=== PATIENT | male | born 1990 | race Caucasian/White ===

== ENCOUNTER 2024-08-22 11:01 | Outpatient (REF) | payer MEDICAID, SELFPAY ==
--- OUTSIDE RECORDS SUMMARY | 2024-08-22 12:55 | XMS_ITS | Clinical Summary ---
Author Organization [employer] Address [address] [facility] [address] [place] [address] Care Team Providers Care Sleeve Tailor Name Role Phone Unavailable Primary Care Provider Unavailabl e Allergies No known active allergies Medications Blood Pressure kit 1 each 2 times daily. 1 kit 5 08/23/19 26 Active lidocaine (Lidoderm) 5 % patch Apply 1 patch topically Once per day. Remove & discard patch within 12 hours or as directed by MD. May use 2 patches at once 60 patch 2 5 08/23/19 26 Active acetaminophen (Tylenol) 500 MG tablet Take 2 tablets (1,000 mg) by mouth every 6 (six) hours if needed for moderate pain or fever for up to 25 doses. 50 tablet 5 Active ibuprofen 400 MG tablet Take 1 tablet (400 mg) by mouth every 6 (six) hours if needed for moderate pain or fever for up to 30 doses. 30 tablet 5 Active Active Problems No known active problems Encounters Date Type Department Care Team Description 08/22/2024 10:00 AM EDT Office Visit [facility] [address] [address] Foot pain, bilateral (Primary Dx); Pain in both lower extremities; Elevated blood pressure reading in office without diagnosis of hypertension 08/22/2024 Travel from Last 3 Months Social History Tobacco Use Types Packs/Day Years Used Date Smoking Tobacco: Former Cigarettes Smokeless Tobacco: Never Tobacco Cessation:Counseling Given: Not Answered Alcohol Use Standard Drinks/Week Comments Not Currently 0 (1 standard drink = 0.6 oz pur e alcohol) Sex and Gender Information Value Date Recorded Sex Assigned at Male 02/23/2022 10:29 AM EDT Legal Sex Male 10:29 AM EDT Gender Identity Male 08/22/2024 9:03 AM EDT Sexual Orientation Straight 08/22/2024 9: 03 AM EDT Last Filed Vital Signs Vital Sign Reading Time Taken Comments Blood Pressure 151/103 08/22/2024 9:48 AM EDT Pulse 110 08/22/2024 9:48 AM EDT Temperature 36.3 ??C (97.4 ??F) 08/22/2024 9:48 AM ED T Respiratory Rate 17 08/22/2024 9:48 AM EDT Oxygen Saturation 98% 08/22/2024 9:48 AM EDT Inhaled Oxygen Concentration - - Weight 59.9 kg (132 lb) 08/22/2024 9:48 AM EDT Height - - Body Mass Index - - Plan of Treatment Health Maintenance Due Date Last Done Comments Depression Screening 1992 HIV Screening 1992 SDOH Screening 1992 Alcohol/Substance Use Screening 2004 Family Planning (PISQ) 07/12/2007 Hepatitis C Screening 2010 DTaP/Tdap/Td Vaccines (1 - Tdap) 07/12/2011 Hepatitis B Vaccines (1 of 3 - 19+ 3-dose series) 07/12/2011 COVID-19 Vaccine ( - 2023-2 5 season) 2023 Influenza Vaccine (#1) 2023 Tobacco Screening 08/22/2025 08/22/2024 Zoster Vaccines (1 of 2) 2042 RSV Patients and Pa tients Aged 60 years or older (1 - 1-dose 75+ series) 07/12/2067 HIB Vaccines Aged Out No longer eligi ble based on patient's age to complete this topic HPV Vaccines Aged Out No longer eligi ble based on patient's age to complete this topic Hepatitis A Vaccines Aged Out No long er eligible based on patient's age to complete this topic IPV Vaccines Aged Out No longer eligi ble based on patient's age to complete this topic Meningococcal Vaccine Aged Out No onesimo lewis eligible based on patient's age to complete this topic Pneumococcal Vaccine: Pediat rics (0 to 5 Years) and At-Risk Patients (6 to 49) Years) Aged Out No longer elig ible based on patient's age to complete this topic RSV under 20 months Aged Out No longe r eligible based on patient's age to complete this topic Rotavirus Vaccines Aged Out No longer eligible based on patient's age to complete this topic Insurance [facility]
--- OUTSIDE RECORDS SUMMARY | 2024-08-22 12:55 | XMS_ITS | Encounter Summary ---
Author Organization [employer] [facility] Address [address] [facility] 7t [place] [address] Care Team Providers Care Writing Center Director Name Role Phone Unavailable Primary Care Provider Unavailabl e Encounter Details Date Type Department Care Team (Latest Contact Info) Description 08/22/2024 Travel Social History Tobacco Use Types Packs/Day Years Used Date Smoking Tobacco: Former Cigarettes Smokeless Tobacco: Never Alcohol Use Standard Drinks/Week Comments Not Currently 0 (1 standard drink = 0.6 oz pur e alcohol) Sex and Gender Information Value Date Recorded Sex Assigned at Male 02/23/2022 10:29 AM EDT Legal Sex Male 10:29 AM EDT Gender Identity Male 08/22/2024 9:03 AM EDT Sexual Orientation Straight 08/22/2024 9: 03 AM EDT documented as of this encounter Plan of Treatment Not on file documented as of this encounter Visit Diagnoses Not on filedocumented in this encounter
--- OUTSIDE RECORDS SUMMARY | 2024-08-22 12:55 | XMS_ITS | Encounter Summary ---
Author Organization [employer] Address [address] [facility] [address] [place] [address] Care Team Providers Care Order Checker Packer Processer Name Role Phone Unavailable Primary Care Provider Unavailabl e Reason for Visit * Reason Comments Foot Pain Encounter Details Date Type Department Care Team (Late st Contact Info) Description 08/22/2024 10:00 AM EDT Office Visit [facility] [address] [place] [id number] Foot pain, bilateral (Primary Dx); Pain in both lower extremities; Elevated blood pressure reading in office without diagnosis of hypertension Social History Tobacco Use Types Packs/Day Years [...] AM EDT documented as of this encounter Last Filed Vital Signs Vital Sign Reading [...] - - Body Mass Index - - documented in this encounter Plan of Treatment Scheduled Orders Name Type Priority Associated Diagnoses Orde r Schedule CBC auto differential Lab Routine Elevated blood pressure reading in office without diagnosis of hypertension Foot pain, bilateral Pain in both lower extremities Expected: 08/22/2024 (Approximate), Expires: 08/22/2025 Comprehensive Metabolic Panel Lab Routine Elevated blood pressure reading in office without diagnosis of hypertension Foot pain, bilateral Pain in both lower extremities Expected: 08/22/2024 (Approximate), Expires: 08/22/2025 TSH with Reflex to Free T4 Lab Routine Elevated blood pressure reading in office without diagnosis of hypertension Foot pain, bilateral Pain in both lower extremities Expected: 08/22/2024 (Approximate), Expires: 08/22/2025 Vitamin B12 Lab Routine Elevated blood pressure reading in office without diagnosis of hypertension Foot pain, bilateral Pain in both lower extremities Expected: 08/22/2024 (Approximate), Expires: 08/22/2025 Uric acid Lab Routine Elevated blood pressure reading in office without diagnosis of hypertension Foot pain, bilateral Pain in both lower extremities Expected: 08/22/2024 (Approximate), Expires: 08/22/2025 Lyme Disease Ab with Reflex to Blot (IgG, IgM) Lab Routine Elevated blood pressure reading in office without diagnosis of hypertension Foot pain, bilateral Pain in both lower extremities Expected: 08/22/2024, Expires: 08/22/2025 Hemoglobin A1c Lab Routine Foot pain, bilateral Expected: 08/22/2024 (Approximate), Expires: 08/22/2025 documented as of this encounter Visit Diagnoses Diagnosis Foot pain, bilateral- Primary Pain in both lower extremities Elevated blood pressure reading in office without diagnosis of hypertension documented in this encounter
[2024-08-22 13:12] LABS: MANUAL DIFF FLAG NO
[2024-08-22 13:29] LABS: Basophils Absolute Auto 0.1 X10*3/uL (0.0-0.2); Basophils Percent Auto 0.8 % (0-2); Eosinophils Absolute Auto 0.1 X10*3/uL (0.0-0.4); Eosinophils Percent Auto 1.3 % (0-4); Hematocrit 46.7 % (42.0-52.0); Hemoglobin 15.5 g/dl (14.0-18.0); Imm Gran Abs Auto 0.01 X10*3/uL (0.00-0.03); Imm Gran Pct Auto 0.2 % (0.0-0.4); Lymphocytes Absolute Auto 1.6 X10*3/uL (1.2-4.9); Lymphocytes Percent Auto 25.8 % (20-40); Mean Corpuscular HGB Conc 33.2 g/dl (31.0-36.0); Mean Corpuscular Hemoglobin 27.7 pg (27.0-33.0); Mean Corpuscular Volume 83.5 fL (80.0-98.0); Monocytes Absolute Auto 0.4 X10*3/uL (0.1-1.2); Monocytes Percent Auto 5.7 % (2-11); Neutrophils Absolute Auto 4.2 x10*3/uL (2.0-8.3); Neutrophils Percent Auto 66.2 % (45-73); Platelet Count 324 X10*3/uL (160-400); Red Blood Count 5.59 X10*6/uL (4.60-5.80); Red Cell Distribution Width 12.2 % (11.0-16.0); White Blood Count 6.3 X10*3/uL (4.8-10.8)
[2024-08-22 13:38] LABS: Estimated Average Glucose 324 mg/dL; Hemoglobin A1C 463.3176 umol/L; Hemoglobin A1c % 12.9 % (<6.0); Total Hemoglobin (HGBA1C) 3943.4824 umol/L
[2024-08-22 14:01] LABS: Alanine Aminotransferase 24 U/L (0-40); Albumin Level 4.6 g/dL (3.5-5.0); Alkaline Phosphatase 165 U/L (39-117); Anion Gap 12 (12-20); Aspartate Amino Transferase 16 U/L (5-37); Bilirubin Total 0.5 mg/dL (0.0-1.0); Blood Urea Nitrogen 14 mg/dL (9-16); Calcium 9.3 mg/dL (8.4-10.2); Carbon Dioxide 28 mmol/L (22-29); Chloride 102 mmol/L (96-108); Estimated Glomerular Filt Rate > 60; Glucose Random 288 mg/dL (60-115); Potassium 4.7 mmol/L (3.3-5.1); Sodium 137 mmol/L (135-145); TSH reflex Free T4 1.59 uIU/mL (0.32-4.0); Total Protein 7.9 g/dL (6.5-8.0); Uric Acid 3.1 mg/dL (3.4-7.0); Vitamin B12 796 pg/mL (200-900)
[2024-08-23 13:13] LABS: Lyme Abs Screen <0.90 index
== END 2024-08-22 11:02 | disposition home or self-care (01) ==
LOC: HO.HHCL 11:01
PROVIDERS: Visit Provider Emergency Medicine
DX: M79.671 Pain in right foot (principal); M79.672 Pain in left foot; M79.604 Pain in right leg; M79.605 Pain in left leg; R03.0 Elevated blood-pressure reading, without diagnosis of hypertension
CPT/HCPCS: 36415; 80053; 82607; 83036; 84443; 84550; 85025; 86617; 86618

== ENCOUNTER 2024-08-24 10:30 | Outpatient (REF) | payer MEDICAID, SELFPAY ==
--- OUTSIDE RECORDS SUMMARY | 2024-08-24 12:02 | XMS_ITS | Encounter Summary ---
Author Organization [employer] [facility] Address [address] [facility] [address] [place] [address] Care Team Providers Care Manager Sourcing Name Role Phone Enrique Eaton MD Primary Care Provider [phone] Reason for Referral * Consultation (Routine) - Authorized Specialty Diagnoses / Procedures Referred By Contac t Referred To Contact Pharmacy Diagnoses Type 2 diabetes mellitus with diabetic neuropathy, without long-term current use of insulin (CMS/HCC) Hypertension, unspecified type Enrique Eaton MD [address] [place] [address] Phone: tel: fax: Referral ID Status Reason Start Date Expiration Date Visits Requested Visits Authorized [id number] Authorized Consult and Treat 08/24/2024 08/24/2025 6 6 Reason for Visit * Reason Comments Diabetes Encounter Details Date Type Department Care Team (Late st Contact Info) Description 08/24/2024 10:00 AM EDT Office Visit [facility] [address] [place] [address] Enrique Eaton MD [address] [place], [place] [phone] Type 2 diabetes mellitus with diabetic neuropathy, without long-term current use of insulin (CMS/HCC) (Primary Dx); Hypertension, unspecified type Social History Tobacco Use Types Packs/Day Years Used Date Smoking Tobacco: Former Cigarettes Smokeless Tobacco: Never Tobacco Cessation:Counseling Given: Not Answered Alcohol Use Standard Drinks/Week Comments Not Currently 0 (1 standard drink = 0.6 oz pur e alcohol) Depression Answer Date Recorded Patient Health Questionnaire-9 Score 8 08/24/2024 Patient Health Questionnaire-9 Score 8 08/24/2024 Last PHQ-9: Questionnaire Data Not on file 0 08/24/2024 Housing Stability Answer Date Recorded What is your housing situation today? I have rogelio starkey 08/24/[address] you li ve. Do you have problems with any of the following? I am not sure 08/24/2024 Food Insecurity Answer Date Recorded Within the past 12 months, y ou worried that your food would run out before you got money to buy more: Never True 2024 Within the past 12 months,th e food you bought just didn't last and you didn't have enough money to get more: Sometimes True 08/24/2024 Transportation Answer Date Recorded In the past 12 months, has l ack of transportation kept you from medical appts, meetings, work or from getting things needed for daily living? No 08/24/2024 Utilities Answer Date Recorded In the past 12 months, has t he electric, gas, oil or water company threatened to shut off services in your home? No 08/24/2024 Depression Answer Date Recorded Patient Health Questionnaire-2 Score 0 08/24/2024 Internet Access Answer Date Recorded Internet Access Q1 No 08/24/2024 Internet Access Q2 My internet/Wi-Fi ac cess is not consistent or reliable 08/24/2024 Sex and Gender Information Value Date Recorded Sex Assigned at Male 02/23/2022 10:29 AM EDT Legal Sex Male 10:29 AM EDT Gender Identity Male 08/22/2024 9:03 AM EDT Sexual Orientation Straight 08/22/2024 9: 03 AM EDT documented as of this encounter Last Filed Vital Signs Vital Sign Reading Time Taken Comments Blood Pressure 149/95 08/24/2024 9:48 AM EDT Pulse 104 08/24/2024 9:48 AM EDT Temperature 36.4 ??C (97.6 ??F) 08/24/2024 9:48 AM ED T Respiratory Rate 18 08/24/2024 9:48 AM EDT Oxygen Saturation 98% 08/24/2024 9:48 AM EDT Inhaled Oxygen Concentration - - Weight 59.3 kg (130 lb 12.8 oz) 08/24/2024 9:48 AM EDT Height 165.1 cm (5' 5 ) 08/24/2024 9:48 AM EDT Body Mass Index 21.77 08/24/2024 9:48 AM EDT documented in this encounter Plan of Treatment Scheduled Orders Name Type Priority Associated Diagnoses Orde r Schedule Albumin, Random Urine W/Creatinine Lab Routine Type 2 diabetes mellitus with diabetic neuropathy, without long-term current use of insulin ([facility]) Expected: 08/24/2024 (Approximate), Expires: 08/24/2025 Scheduled Referrals Name Type Priority Associated Diagnoses Orde r Schedule Referral to Pharmacy CDTM Outpatient Referral Routine Type 2 diabetes mellitus with diabetic neuropathy, without long-term current use of insulin ([facility]) Hypertension, unspecified type Ordered: 08/24/2024 documented as of this encounter Procedures Procedure Name Priority Date/Time Associated Diagnosis Comments POCT GLUCOSE Routine 08/24/2024 9:50 AM EDT Type 2 diabetes mellitus with diabetic neuropathy, without long-term current use of insulin ([facility]) documented in this encounter Results * (ABNORMAL) POCT Glucose (08/24/2024 9:50 AM EDT) [facility] Signature Glucose Blood, POC 241(A) 60 - 200 mg/dL QC Media Lot # [id number] Lot# Expiration Date [id number] Blood Capillary blood specimen / Unknown 08/24/2024 9:50 AM EDT Enrique Eaton MD POINT OF CARE TEST ENTER/EDIT OR DERABLES Final Result documented in this encounter Visit Diagnoses Diagnosis Type 2 diabetes mellitus with diabetic neuropathy, without long-term current use of insulin ([facility])- Primary Hypertension, unspecified type documented in this encounter Additional Health Concerns Assessment Noted Time PHQ-9 Depression Total Score: 8 08/25/19 10:32 AM EDT documented as of this encounter Care Teams Manager Sourcing Relationship Specialty Start Date End Date Name, MD Enrique [address] [place] [address] PCP - General Internal Medicine 08/23/24 documented as of this encounter
--- OUTSIDE RECORDS SUMMARY | 2024-08-24 12:02 | XMS_ITS | Encounter Summary ---
Author Organization [employer] [facility] Address [address] [facility] 7t [place] [address] Care Team Providers Care Private Branch Exchange Service Advisor Name Role Phone Unavailable Primary Care Provider Unavailabl e Reason for Visit * Reason Onset Date Comments Results 08/22/2024 Encounter Details Date Type Department Care Team (Late st Contact Info) Description 08/22/2024 Telephone [facility] [place] [address] [place], [place] [phone] Slim De Jesus MD [address] [place] [address] Results Social History Tobacco Use Types Packs/Day Years [...] AM EDT documented as of this encounter Miscellaneous Notes * Telephone Encounter - Dior Cheng RN - 08/22/2024 2:19 PM EDT TC received from Dr De Jesus after he reviewed labs that were ordered today patient A1C 12.9 new diagnosis of Diabetes pt needs to be seen tomorrow in [facility] in [place] to start medication with Dr De Jesus. TC placed to pt and he was scheduled to be seen tomorrow morning. documented in this encounter Plan of Treatment Not on file documented as of this encounter Visit Diagnoses Not on filedocumented in this encounter
--- OUTSIDE RECORDS SUMMARY | 2024-08-24 12:02 | XMS_ITS | Encounter Summary ---
Author Organization [employer] [facility] Address [address] [facility] 7t [place] [address] Care Team Providers Care Antenna Specialist Name Role Phone Unavailable Primary Care Provider [...]
--- OUTSIDE RECORDS SUMMARY | 2024-08-24 12:02 | XMS_ITS | Encounter Summary ---
Author Organization [employer] Address [address] [facility] [address] 7[address] [place] [address] Care Team Providers Care Cinder Pitman Name Role Phone Unavailable Primary Care Provider Unavailabl e Encounter Details Date Type Department Care Team (Late st Contact Info) Description 08/22/2024 Telephone [facility] [address] [place], [place] [phone] Slim De Jesus MD [address] [place], [place] [phone] Social History Tobacco Use Types Packs/Day Years [...] encounter Miscellaneous Notes * Telephone Encounter - Keyanna Iyer RN - 08/22/2024 4:24 PM EDT TC placed to pt regarding message below. Pt verbalized understanding regarding advisement and in agreement to appts. No questions or concerns expressed at time of call. [facility] Staff Monica assisting with translation for above call. RN verbally spoke with Dr. De Jesus regarding upcoming appt tomorrow 08/23/24 and to prevent longer waiting time for pt between appt at Walk In and going to pharmacy for new diabetic supplies/teaching, appt at [facility] Walk In requested to be moved to 0900. New Pt appt able to be obtained for pt, this 08/24/[address] Name. RN to also advise he can eat breakfast prior to appts tomorrow but a lso advise to avoid all concentrated sweets/sugars. documented in this encounter Plan of Treatment Not on file documented as of this encounter Visit Diagnoses Not on filedocumented in this encounter
--- OUTSIDE RECORDS SUMMARY | 2024-08-24 12:02 | XMS_ITS | Encounter Summary ---
Author Organization [employer] [facility] Address [address] [place] [address] Care Team Providers Care Defence Force Senior Officer Name Role Phone Name, Enrique AUGUSTE Primary Care Provider [phone] Reason for Referral * Consultation (Routine) - Pending Review Specialty Diagnoses / Procedures Referred By Contac t Referred To Contact Ophthalmology Diagnoses Type 2 diabetes mellitus with diabetic neuropathy, without long-term current use of insulin (CMS/HCC) Slim De Jesus MD [address] [place] [address] Phone: tel: fax: Referral ID Status Reason Start Date Expiration Date Visits Requested Visits Authorized [id number] Pending Review Specialty Services Required 08/23/2024 08/23/2025 1 1 Reason for Visit * Reason Comments Diabetes Encounter Details Date Type Department Care Team (Late st Contact Info) Description 08/23/2024 9:00 AM EDT Office Visit [facility] [address] [place], [place] [phone] Slim De Jesus MD [address] [place], [place] [phone] Type 2 diabetes mellitus with diabetic neuropathy, without long-term current use of insulin (CMS/HCC) (Primary Dx); Elevated blood pressure reading in office without [...] Sign Reading Time Taken Comments Blood Pressure 148/97 08/23/2024 8:46 AM EDT Pulse 93 08/23/2024 8:46 AM EDT Temperature 36.7 ??C (98.1 ??F) 08/23/2024 8:46 AM ED T Respiratory Rate 17 08/23/2024 8:46 AM EDT Oxygen Saturation 98% 08/23/2024 8:46 AM EDT Inhaled Oxygen Concentration - - Weight 59.9 kg (132 lb) 08/23/2024 8:46 AM EDT Height - - Body Mass Index - - documented in this encounter Progress Notes * Slim De Jesus MD - 08/23/2024 9:00 AM EDT Subjective Patient ID: Jordy Fong is a 34 y.o. male. Blueprint Maker: Ivanna REESE Jordy was contacted to return to the walk-in clinic today because he was seen yesterday as a new patient, had no h/o medical diagnoses. Blood tests were ordered and his A1C result was 12.9. Random blood sugar was 288. He came to walk-in clinic yesterday because of 4 month h/o pain in bilat lateral legs and plantar surfaces of both feet with occasional tingling of feet. Pain is constant, worse when bearing weight for several hours at work. Had not tried any pain meds. Cold helps, heat doesn't. No trauma, joint swelling, fever, chills, rash, tick bite, family history of gout. In [facility] there is a [facility] Emergency Department visit note from December 06, 2021 when he was seen for palpitations. Random blood sugar at that time was 238, but it was not addressed in the ED note. Other lab abnormalities at that visit was alkaline phosphatase at 159, ALT 41, total protein 8.4. Lives with roommates. Has no children. Works in a restaurant. Smoked for 5 years, quit 3 years ago. No EtOH. No Illicit substances. The following portions of the chart were reviewed this encounter and updated as appropriate: Review of Systems Constitutional: Negative for fever. Respiratory: Negative for shortness of breath. Cardiovascular: Negative for chest pain. Gastrointestinal: Negative for abdominal pain. Skin: Negative for rash. Neurological: Positive for numbness. Negative for headaches. Objective Physical Exam Constitutional: Appearance: Normal appearance. HENT: Nose: Nose normal. Eyes: Conjunctiva/sclera: Conjunctivae normal. Pupils: Pupils are equal, round, and reactive to light. Cardiovascular: Rate and Rhythm: Normal rate and regular rhythm. Pulses: Dorsalis pedis pulses are 2+ on the right side and 2+ on the left side. Heart sounds: No murmur heard. Pulmonary: Effort: Pulmonary effort is normal. Breath sounds: Normal breath sounds. Musculoskeletal: General: Normal range of motion. Cervical back: No tenderness. Skin: Findings: No rash. Neurological: Mental Status: He is alert. Gait: Gait is intact. Psychiatric: Mood and Affect: Mood normal. Behavior: Behavior normal. Procedures Assessment/Plan Diagnoses and all orders for this visit: Type 2 diabetes mellitus with diabetic neuropathy, without long-term current use of insulin (CMS/[facility]) Discussed diagnosis, prescribed metformin, Lantus Solostar, glucometer with supplies. I spoke with [facility] pharmacy, and he is going there now to pickle processor the prescriptions, and for being taught how to use the Lantus Solostar, glucometer and supplies. Referred to ophthalmology. Has new patient PCP appointment tomorrow. - Referral to Ophthalmology; Future Elevated blood pressure reading in office without diagnosis of hypertension Yesterday he was prescribed home blood pressure monitor, and was given BP log to use twice a day. He will bring log to PCP appointment tomorrow. Other orders - pen needle 32G x 4 mm misc; Use as instructed documented in this encounter Plan of Treatment Scheduled Referrals Name Type Priority Associated Diagnoses Order Schedule Referral to Ophthalmology Outpatient Referral Routine Type 2 diabetes mellitus with diabetic neuropathy, without long-term current use of insulin (CMS/HCC) Expected: 08/23/2024 (Approximate), Expires: 08/23/2025 documented as of this encounter Visit Diagnoses Diagnosis Type 2 diabetes mellitus with diabetic neuropathy, without long-term current use of insulin (CMS/[facility])- Primary Elevated blood pressure reading in office without diagnosis of hypertension documented in this encounter Care Teams Defence [employer] Senior Officer Relationship Specialty Start Date End Date Name, MD Enrique [address] [place] [address] PCP - General Internal Medicine 08/23/24 documented as of this encounter
--- OUTSIDE RECORDS SUMMARY | 2024-08-24 12:02 | XMS_ITS | Encounter Summary ---
Author Organization [employer] [facility] Address [address] [facility] [address] [place] [address] Care Team Providers Care Software Sales Executive Name Role Phone Unavailable Primary Care Provider Unavailabl e Reason for Visit * Reason Comments Foot Pain Encounter Details Date Type Department Care Team (Late st Contact Info) Description 08/22/2024 10:00 AM EDT Office Visit [facility] [address], [place] [phone] Slim De Jesus MD [address] [place] [address] Foot pain, bilateral (Primary Dx); Pain in [...] Notes * Slim De Jesus MD - 08/22/2024 10:00 AM EDT Subjective Patient ID: Jordy Fnog is a 34 y.o. male, new patient. States has never seen a PCP in past. [employer]: [employer] RE[employer] Jordy came to [facility] today because of 4 month h/o pain in bilat Lateral legs and plantar surfaces of both feet with occasional tingling of feet, pain is constant, worse when bearing weight for several hours at work. Has not tried any pain med. Cold helps, heat doesn't. No trauma, joint swelling, fever, chills, rash, tick bite, family history of gout. Past med hx: neg Past surgical hx: neg Lives with roommates. Has no children. Works in restaurant. Smoked for 5 years, quit 3 years ago. No EtOH. No Illicit substances. The following portions of the chart were reviewed this encounter and updated as appropriate: Review of Systems Constitutional: Negative for fever. Respiratory: Negative for shortness of breath. Cardiovascular: Negative for chest pain. Gastrointestinal: Negative for abdominal pain. Skin: Negative for rash. Neurological: Negative for headaches. Objective Physical Exam Constitutional: Appearance: Normal appearance. HENT: Right Ear: Tympanic membrane, ear canal and external ear normal. Left Ear: Tympanic membrane, ear canal and external ear normal. Nose: Nose normal. Mouth/Throat: Mouth: Mucous membranes are moist. Pharynx: Oropharynx is clear. Eyes: Conjunctiva/sclera: Conjunctivae normal. Pupils: Pupils are [...] range of motion. Cervical back: No tenderness. Comments: No tenderness to palpation over both legs and feet. No erythema, increased warmth, or swelling of legs or feet. Full range of motion of knees, ankles, and toes. Skin: Findings: No rash. Neurological: Mental Status: He is alert. Gait: Gait is intact. Psychiatric: Mood and Affect: Mood normal. Behavior: Behavior normal. Procedures Assessment/Plan Diagnoses and all orders for this visit: Foot pain, bilateral ?etiology Lab tests ordered. Will call patient with results Prescribed acetaminophen ibuprofen and lidocaine patches. Return to clinic if not improving JAVA PROJECT MANAGER PCP ru't requested - CBC auto differential; Future - Comprehensive Metabolic Panel; Future - TSH with Reflex to Free T4; Future - Vitamin B12; Future - Uric acid; Future - Lyme Disease Ab with Reflex to Blot (IgG, IgM); Future - Hemoglobin A1c; Future Pain in both lower extremities As above - CBC auto differential; Future - Comprehensive Metabolic Panel; Future - TSH with Reflex to Free T4; Future - Vitamin B12; Future - Uric acid; Future - Lyme Disease Ab with Reflex to Blot (IgG, IgM); Future Elevated blood pressure reading in office without diagnosis of hypertension Prescribed home BP monitor. Reviewed BP parameters, given written BP log that includes BP parameters, to keep daily. Call if BP readings are elevated. Other orders - Blood Pressure kit; 1 each 2 times daily. - lidocaine (Lidoderm) 5 % patch; Apply 1 patch topically Once per day. Remove & discard patch within 12 hours or as directed by MD. May use 2 patches at once - acetaminophen (Tylenol) 500 MG tablet; Take 2 tablets (1,000 mg) by mouth every 6 (six) hours if needed for moderate pain or fever for up to 25 doses. - ibuprofen 400 MG tablet; Take 1 tablet (400 mg) by mouth every 6 (six) hours if needed for moderate pain or fever for up to 30 doses. documented in this encounter Plan of Treatment Pending Results Name Type Priority Associated Diagnoses Date /Time Lyme Disease Ab with Reflex to Blot (IgG, IgM) Lab Routine Elevated blood pressure reading in office without diagnosis of hypertension Foot pain, bilateral Pain in both lower extremities 08/22/2024 11:06 AM EDT documented as of this encounter Procedures Procedure Name Priority Date/Time Associated Diagnosis Comments TSH W/REFLEX TO FT4 Routine 08/22/2024 1 1:06 AM EDT Elevated blood pressure reading in office without diagnosis of hypertension Foot pain, bilateral Pain in both lower extremities LYME DISEASE AB W/REFL TO BLOT (IGG, IGM) Routine 08/22/2024 11:06 AM EDT Elevated blood pressure reading in office without diagnosis of hypertension Foot pain, bilateral Pain in both lower extremities CBC WITH AUTO DIFFERENTIAL Routine 08/22/2024 11:06 AM EDT Elevated blood pressure reading in office without diagnosis of hypertension Foot pain, bilateral Pain in both lower extremities URIC ACID Routine 08/22/2024 11:06 AM EDT Elevated blood pressure reading in office without diagnosis of hypertension Foot pain, bilateral Pain in both lower extremities HEMOGLOBIN A1C Routine 08/22/2024 11:06 AM EDT Foot pain, bilateral VITAMIN B12 Routine 08/22/2024 11:06 AM EDT Elevated blood pressure reading in office without diagnosis of hypertension Foot pain, bilateral Pain in both lower extremities COMPREHENSIVE METABOLIC PANEL Routine 08/22/2024 11:06 AM EDT Elevated blood pressure reading in office without diagnosis of hypertension Foot pain, bilateral Pain in both lower extremities documented in this encounter Results * (ABNORMAL) Hemoglobin A1c (08/22/2024 11:06 AM EDT) Hemoglobin A1c 12.9(H) <6.0 % [facility] Comment:Hemoglobin A1C Refer ence Range Adults: 4.8 - 6.0 % Non diabetic: < 6.0 % Goal: < 7.0 %Additional Action Suggested: > 8.0 %Note: Hemoglobin A1c results are invalid for patients with abnormal amounts of HbF. Blood transfusions may impact the HbA1c concentration in the patient sample. Estimated Average Glucose 324 mg/dL [facility] Comment:eAG = Estimated ave rage glucose which is %A1C expressed asaverage glucose, using the formula of the Y5E-TzoxhdcOxvnrum Glucose study (ADAG), Diabetes Care, Vol.31,#8,Nov. 2007 Blood Venous blood specimen / Unknown 08/22/2024 11:06 AM EDT 08/22/2024 1:10 PM EDT us Slim De Jesus MD LAB BLOOD ORDERABLES Final Resul t [facility] [address] [place] [phone] * (ABNORMAL) Uric acid (08/22/2024 11:06 AM EDT) Uric Acid 3.1(L) 3.4 - 7.0 mg/dL [facility] Blood Venous blood specimen / Unknown 08/22/2024 11:06 AM EDT 08/22/2024 1:10 PM EDT us Slim De Jesus MD LAB BLOOD ORDERABLES Final Resul t Performing Organization Address [facility] Co de Phone Number [facility] [address] [place] [phone] * Vitamin B12 (08/22/2024 11:06 AM EDT) Vitamin B12 796 200 - 900 pg/mL [facility] Comment:NORMAL 200-900 PG/ML INDETERMINATE 160-199 PG/ML DEFICIENT < 160 PG/ML Blood Venous blood specimen / Unknown 08/22/2024 11:06 AM EDT 08/22/2024 1:10 PM EDT us Slim De Jesus MD LAB BLOOD ORDERABLES Final Resul t Performing Organization Address [facility] Co de Phone Number [facility] [address] [place] [phone] * TSH with Reflex to Free T4 (08/22/2024 11:06 AM EDT) Pathologist [facility] TSH reflex Free T4 1.59 0.32 - 4.0 uIU/mL [facility] Blood Venous blood specimen / Unknown 08/22/2024 11:06 AM EDT 08/22/2024 1:10 PM EDT us Slim De Jesus MD LAB BLOOD ORDERABLES Final Resul t Performing Organization Address [facility] Co de Phone Number [facility] [address] [place] [address] [phone] * (ABNORMAL) Comprehensive Metabolic Panel (08/22/2024 11:06 AM EDT) [facility] Sodium 137 135 - 145 mmol/L [facility] Potassium 4.7 3.3 - 5.1 mmol/L [facility] Chloride 102 96 - 108 mmol/L [facility] Carbon Dioxide 28 22 - 29 mmol/L [facility] Anion Gap 12 12 - 20 [facility] Urea Nitrogen (BUN) 14 9 - 16 mg/dL [facility] Creatinine, Serum 0.68 0.5 - 1.4 mg/dL [facility] Estimated Glomerular Filt Rate >60 [facility] Comment:Chronic Kidney Disea se: Estimated GFR < 60 mL/min/1.45d6Jhnscy Kidney Disease: Estimated GFR < 15 mL/min/1.73m2 Glucose 288(H) 60 - 115 mg/dL [facility] Calcium 9.3 8.4 - 10.2 mg/dL [facility] Bilirubin, Total 0.5 0.0 - 1.0 mg/dL [facility] Aspartate Amino Transferase 16 5 - 37 U/L [facility] Alanine Aminotransferase 24 0 - 40 U/L [facility] Total Protein 7.9 6.5 - 8.0 g/dL [facility] Albumin Level 4.6 3.5 - 5.0 g/dL [facility] Alkaline Phosphatase 165(H) 39 - 117 U/L [facility] Blood Venous blood specimen / Unknown 08/22/2024 11:06 AM EDT 08/22/2024 1:10 PM EDT us Slim De Jesus MD LAB BLOOD ORDERABLES Final Resul t [facility] [address] [place] [phone] * CBC auto differential (08/22/2024 11:06 AM EDT) White Blood Count 6.3 4.8 - 10.8 X10*3/uL [facility] Red Blood Count 5.59 4.60 - 5.80 X10*6/uL [facility] Hemoglobin 15.5 14.0 - 18.0 g/dl [facility] Hematocrit 46.7 42.0 - 52.0 % [facility] Mean Corpuscular Volume 83.5 80.0 - 98.0 fL [facility] Mean Corpuscular Hemoglobin 27.7 27.0 - 33.0 pg [facility] Mean Corpuscular HGB Conc 33.2 31.0 - 36.0 g/dl [facility] Red Cell Distribution Width 12.2 11.0 - 16.0 % [facility] Platelet Count 324 160 - 400 X10*3/uL [facility] Mean Platelet Volume 11.0 9.4 - 12.4 fL [facility] Neutrophils Percent Auto 66.2 45 - 73 % [facility] Imm Gran Pct Auto 0.2 0.0 - 0.4 % [facility] Lymphocytes Percent Auto 25.8 20 - 40 % [facility] Monocytes Percent Auto 5.7 2 - 11 % [facility] Eosinophils Percent Auto 1.3 0 - 4 % [facility] Basophils Percent Auto 0.8 0 - 2 % [facility] NRBC Pct Auto 0.0 0.0 - 0.2 /100WBC [facility] Neutrophils Absolute Auto 4.2 2.0 - 8.3 x10*3/uL [facility] Imm Gran Abs Auto 0.01 0.00 - 0.03 X10*3/uL [facility] Lymphocytes Absolute Auto 1.6 1.2 - 4.9 X10*3/uL [facility] Monocytes Absolute Auto 0.4 0.1 - 1.2 X10*3/uL [facility] Eosinophils Absolute Auto 0.1 0.0 - 0.4 X10*3/uL [facility] Basophils Absolute Auto 0.1 0.0 - 0.2 X10*3/uL [facility] NRBC Abs Auto 0.000 0.0 - 0.012 X10*3/uL [facility] Blood Venous blood specimen / Unknown 08/22/2024 11:06 AM EDT 08/22/2024 1:10 PM EDT us Slim De Jesus MD LAB BLOOD ORDERABLES Final Resul t [facility] [address] [place] [phone] documented in this encounter Visit Diagnoses Diagnosis Foot pain, bilateral- Primary Pain in both lower extremities Elevated blood pressure reading in office without diagnosis of hypertension documented in this encounter
--- OUTSIDE RECORDS SUMMARY | 2024-08-24 12:02 | XMS_ITS | Encounter Summary ---
Author Organization [employer] Address [address] [facility] [address] [place] [address] Care Team Providers Care Sales Project Engineer Name Role Phone Name, Enrique AUGUSTE Primary Care Provider [phone] Encounter Details Date Type Department Care Team (Latest Contact Info) Description 08/24/2024 Travel Social History Tobacco Use Types Packs/Day [...] Diagnoses Not on filedocumented in this encounter Additional Health Concerns Assessment Noted Time PHQ-9 Depression Total Score: 8 08/25/19 10:32 AM EDT documented as of this encounter Care Teams Sales Project Engineer Relationship Specialty Start Date End Date Name, MD Enrique [address] [place] [address] PCP - General Internal Medicine 08/23/24 documented as of this encounter
--- OUTSIDE RECORDS SUMMARY | 2024-08-24 12:02 | XMS_ITS | Encounter Summary ---
Author Organization [employer] Address [address] [facility] [address] [place] [address] Care Team Providers Care Practice Coordinator Name Role Phone Name, Enrique AUGUSTE Primary Care Provider [phone] Encounter Details Date Type Department Care Team (Latest Contact Info) Description 08/23/2024 Travel Social History Tobacco Use Types Packs/Day [...] Diagnoses Not on filedocumented in this encounter Care Teams Practice Coordinator Relationship Specialty Start Date End Date Name, MD Enrique [address] [place] [address] PCP - General Internal Medicine 08/23/24 documented as of this encounter
--- OUTSIDE RECORDS SUMMARY | 2024-08-24 12:02 | XMS_ITS | Encounter Summary ---
Author Organization [employer] Address [address] [place] [address] Care Team Providers Care Market Research Interviewer Name Role Phone Unavailable Primary Care Provider Unavailabl e Encounter Details Date Type Department Care Team (Late st Contact Info) Description 08/22/[address] [facility] [address], [place] [phone] Slim De Jesus MD [address] [place] [address] Social History Tobacco Use Types Packs/Day Years [...] 9:03 AM EDT Sexual Orientation Straight 08/22/2024 9 :03 AM EDT documented as of this encounter Plan of Treatment Not on file documented as of this encounter Visit Diagnoses Not on filedocumented in this encounter
--- OUTSIDE RECORDS SUMMARY | 2024-08-24 12:02 | XMS_ITS | Clinical Summary ---
Author Organization [employer] Address [address] [facility] [address] [facility] [address] [place] [address] Care Team Providers Care Bookmaker Map Name Role Phone Name, Enrique AUGUSTE Primary Care Provider [phone] Allergies No known active allergies Medications Blood Pressure kit 1 each 2 times daily. 1 kit 08/23/19 25 026 Active lidocaine (Lidoderm) 5 % patch Apply 1 patch topically Once per day. Remove & discard patch within 12 hours or as directed by MD. May use 2 patches at once 60 patch 2 08/23/19 25 026 Active acetaminophen (Tylenol) 500 MG tablet Take 2 tablets (1,000 mg) by mouth every 6 (six) hours if needed for moderate pain or fever for up to 25 doses. 50 tablet 08/23/19 25 Active ibuprofen 400 MG tablet Take 1 tablet (400 mg) by mouth every 6 (six) hours if needed for moderate pain or fever for up to 30 doses. 30 tablet 08/23/19 25 Active Blood Glucose Monitoring Suppl (FreeStyle Lite) w/Device kit 1 each 2 times daily. 1 kit 08/23/19 25 Active FREESTYLE LITE test strip Use as instructed 100 each 08/23/19 25 Active Lancets 33G misc 1 each 2 times daily. 100 each 1 08/23/19 25 Active Alcohol Swabs (Alcohol Prep) pads 1 each 2 times daily. 100 each 1 08/23/19 25 Active metFORMIN (Glucophage) 500 MG tablet Take 1 tablet (500 mg) by mouth with breakfast. 30 tablet 1 08/23/19 25 Active pen needle 32G x 4 mm misc Use as instructed 100 each 1 08/23/19 25 Active Continuous Glucose Education Program Manager (FreeStyle Zach 3 [place]) deviceIndicati ons:Type 2 diabetes mellitus with diabetic neuropathy, without long-term current use of insulin ([facility]) 1 each Once per day. Use as directed for CGM 1 each 08/25/19 25 Active Continuous Glucose Sensor (FreeStyle Zach 3 Plus Sensor) miscIndication s:Type 2 diabetes mellitus with diabetic neuropathy, without long-term current use of insulin (CMS/HCC) 1 each every 15 days. Apply 1 every 15 days as directed for CGM 2 each 08/25/19 25 Active glucose blood (FreeStyle Precision Kurt Test) test stripIndicatio ns:Type 2 diabetes mellitus with diabetic neuropathy, without long-term current use of insulin (CMS/HCC) Use to test blood sugar 3 times daily in case of CGM failure or extremes of BG 100 each 08/25/19 25 026 Active losartan (Cozaar) 25 MG tablet Take 1 tablet (25 mg) by mouth Once per day. 30 tablet 08/25/19 026 Active insulin glargine (Lantus) 100 UNIT/ML injection Inject 15 Units under the skin at bedtime. 10 mL 1 08/25/19 25 Active insulin lispro (HumaLOG KWIKPEN) 100 UNIT/ML injection 5 units prior to lunch 1 each 3 08/25/19 25 Active glucose 4 g chewable tablet Chew 4 tablets (16 g) if needed for low blood sugar. 50 tablet 08/25/19 026 Active insulin glargine (Lantus) 100 UNIT/ML injection Inject 10 Units under the skin at bedtime. 10 mL 1 08/23/19 025 Discontinued(Re order (will not trigger notification to Pharmacy)) Active Problems Problem Noted Date Diagnosed Date Type 2 diabetes mellitus, wi thout long-term current use of insulin 08/22/2024 Encounters Date Type Department Care Team Description 08/24/2024 10:00 AM EDT Office Visit [facility] [address] [place] [phone] Name, MD Enrique Type 2 diabetes mellitus with diabetic neuropathy, without long-term current use of insulin (CMS/HCC) (Primary Dx); Hypertension, unspecified type 08/24/2024 Travel 08/23/2024 9:00 AM EDT Office Visit [facility] [address] [place] [phone] Slim De Jesus MD Type 2 diabetes mellitus with diabetic neuropathy, without long-term current use of insulin ([facility]) (Primary Dx); Elevated blood pressure reading in office without diagnosis of hypertension 08/23/2024 Travel 08/22/2024 10:00 AM EDT Office Visit [facility] [address] [place] [phone] Slim De Jesus MD Foot pain, bilateral (Primary Dx); Pain in both lower extremities; Elevated blood pressure reading in office without diagnosis of hypertension 08/22/2024 Telephone [facility] [address] [place] [address] Slim De Jesus MD 08/22/2024 Orders Only [facility] [address] [place] [phone] Slim De Jesus MD 08/22/2024 Telephone [facility] [address] [place] [phone] Slim De Jesus MD Results 08/22/2024 Travel from Last 3 Months Social [...] Mass Index 21.77 08/24/2024 9:48 AM EDT Plan of Treatment Health Maintenance Due Date Last Done Comments HIV Screening 1992 Lipid Panel 1992 Diabetes: Foot Exam 2002 Eye Exam 2002 Alcohol/Substance Use Screening 2004 Family Planning (PISQ) 07/12/2007 Hepatitis C Screening 2010 DTaP/Tdap/Td Vaccines (1 - Tdap) 07/12/2011 Diabetes: Urine Protein Screening 07/12/2011 Hepatitis B Vaccines (1 of 3 - 19+ 3-dose series) 07/12/2011 Pneumococcal Vaccine: Pediatrics (0 to 5 Years) and At-Risk Patients (6 to 49) Years) (1 of 2 - PCV) 07/12/2011 COVID-19 Vaccine (2023-2 5 season) 2023 Influenza Vaccine (#1) 2023 Diabetes: Hemoglobin A1C 11/21/2024 08/22/2024 Depression Screening 08/24/2025 08/24/2024, 08/24/2024 SDOH Screening 08/24/2025 08/24/2024 Tobacco Screening 08/24/2025 08/24/2024 Zoster Vaccines (1 of 2) 2042 RSV Patients and Patients Aged 60 years or older (1 - [...] on patient's age to complete this topic Procedures Procedure Name Priority Date/Time Associated Diagnosis Comments POCT GLUCOSE Routine 08/24/2024 9:50 AM EDT Type 2 diabetes mellitus with diabetic neuropathy, without long-term current use of insulin ([facility]) HEMOGLOBIN A1C Routine 08/22/2024 11:06 AM EDT Foot pain, bilateral LYME DISEASE AB W/REFL TO BLOT (IGG, IGM) Routine 08/22/2024 11:06 AM EDT Elevated blood pressure reading in office without diagnosis of hypertension Foot pain, bilateral Pain in both lower extremities URIC ACID Routine 08/22/2024 11:06 AM EDT Elevated blood pressure reading in office without diagnosis of hypertension Foot pain, bilateral Pain in both lower extremities VITAMIN B12 Routine 08/22/2024 11:06 AM EDT Elevated blood pressure reading in office without diagnosis of hypertension Foot pain, bilateral Pain in both lower extremities TSH W/REFLEX TO FT4 Routine 08/22/2024 1 [...] pain, bilateral Pain in both lower extremities from Last 3 Months Results * (ABNORMAL) POCT Glucose (08/24/2024 9:50 AM EDT) [facility] Glucose Blood, POC 241(A) 60 - 200 mg/dL QC Media Lot # [id number] Lot# Expiration Date 82 Blood Capillary blood specimen / Unknown 08/24/2024 9:50 AM EDT Enrique Eaton MD POINT OF CARE TEST ENTER/EDIT OR DERABLES Final Result * TSH with Reflex to Free T4 (08/22/2024 11:06 AM EDT) [facility] TSH reflex Free T4 1.59 0.32 - 4.0 uIU/mL [facility] Blood Venous blood specimen / Unknown 08/22/2024 11:06 AM EDT 08/22/2024 1:10 PM EDT Slim De Jesus MD LAB BLOOD ORDERABLES Final Resul t [facility] [address] [place] [address] [phone] * CBC auto differential (08/22/2024 11:06 AM EDT) [facility] White Blood Count 6.3 4.8 - 10.8 X10*3/uL [facility] Red Blood Count 5.59 4.60 - 5.80 X10*6/uL [facility] Hemoglobin 15.5 14.0 - 18.0 g/dl [facility] Hematocrit 46.7 42.0 - 52.0 % [facility] Mean Corpuscular Volume 83.5 80.0 - 98.0 fL [facility] Mean Corpuscular Hemoglobin 27.7 27.0 - 33.0 pg [facility] Mean Corpuscular HGB Conc 33.2 31.0 - 36.0 g/dl [facility] Red Cell Distribution Width 12.2 11.0 - 16.0 % [facility] Platelet Count 324 160 - 400 X10*3/uL [facility] Mean Platelet Volume 11.0 9.4 - 12.4 fL [facility] Neutrophils Percent Auto 66.2 45 - 73 % [facility] Imm Gran Pct Auto 0.2 0.0 - 0.4 % [facility] Lymphocytes Percent Auto 25.8 20 - 40 % [facility] Monocytes Percent Auto 5.7 2 - 11 % [facility] Eosinophils Percent Auto 1.3 0 - 4 % [facility] Basophils Percent Auto 0.8 0 - 2 % [facility] NRBC Pct Auto 0.0 0.0 - 0.2 /100WBC [facility] Neutrophils Absolute Auto 4.2 2.0 - 8.3 x10*3/uL [facility] Imm Gran Abs Auto 0.01 0.00 - 0.03 X10*3/uL [facility] Lymphocytes Absolute Auto 1.6 1.2 - 4.9 X10*3/uL [facility] Monocytes Absolute Auto 0.4 0.1 - 1.2 X10*3/uL [facility] Eosinophils Absolute Auto 0.1 0.0 - 0.4 X10*3/uL [facility] Basophils Absolute Auto 0.1 0.0 - 0.2 X10*3/uL [facility] NRBC Abs Auto 0.000 0.0 - 0.012 X10*3/uL [facility] Blood Venous blood specimen / Unknown 08/22/2024 11:06 AM EDT 08/22/2024 1:10 PM EDT us Slim De Jesus MD LAB BLOOD ORDERABLES Final Resul t Performing Organization Address [facility] Co de Phone Number [facility] [address] [place] [phone] * (ABNORMAL) Uric acid (08/22/2024 11:06 AM EDT) Uric Acid 3.1(L) 3.4 - 7.0 mg/dL [facility] Blood Venous blood specimen / Unknown 08/22/2024 11:06 AM EDT 08/22/2024 1:10 PM EDT us Slim De Jesus MD LAB BLOOD ORDERABLES Final Resul t Performing Organization Address [facility] Phone Number [facility] [address] [place] [phone] * (ABNORMAL) Hemoglobin A1c (08/22/2024 11:06 AM EDT) Hemoglobin A1c 12.9(H) <6.0 % [facility] Comment:Hemoglobin A1C Refer ence Range Adults: 4.8 - 6.0 % Non diabetic: < 6.0 % Goal: < 7.0 %Additional Action Suggested: > 8.0 %Note: Hemoglobin A1c results are invalid for patients with abnormal amounts of HbF. Blood transfusions may impact the HbA1c concentration in the patient sample. Estimated Average Glucose 324 mg/dL [facility] Comment:eAG = Estimated ave rage glucose which is %A1C expressed asaverage glucose, using the formula of the [id number] Glucose study (ADAG), Diabetes Care, Vol.31,#8,Nov. 2007 Blood Venous blood specimen / Unknown 08/22/2024 11:06 AM EDT 08/22/2024 1:10 PM EDT us Slim De Jesus MD LAB BLOOD ORDERABLES Final Resul t Performing Organization Address [facility]/ZIP Co de Phone Number [facility] [address] [place] [address] [phone] * Vitamin B12 (08/22/2024 11:06 AM EDT) Pathologist [facility] Vitamin B12 796 200 - 900 pg/mL [facility] Comment:NORMAL 200-900 PG/ML INDETERMINATE 160-199 PG/ML DEFICIENT < 160 PG/ML Blood Venous blood specimen / Unknown 08/22/2024 11:06 AM EDT 08/22/2024 1:10 PM EDT us Slim De Jesus MD LAB BLOOD ORDERABLES Final Resul t [facility] [address] [place] [phone] * (ABNORMAL) Comprehensive Metabolic Panel (08/22/2024 11:06 AM EDT) [facility] Sodium 137 135 - 145 mmol/L [facility] Potassium 4.7 3.3 - 5.1 mmol/L [facility] Chloride 102 96 - 108 mmol/L [facility] Carbon Dioxide 28 22 - 29 mmol/L [facility] Anion Gap 12 12 - 20 [facility] Urea Nitrogen (BUN) 14 9 - 16 mg/dL [facility] Creatinine, Serum 0.68 0.5 - 1.4 mg/dL [facility] Estimated Glomerular Filt Rate >60 [facility] Comment:Chronic Kidney Disea se: Estimated GFR < 60 mL/min/[id number] Kidney Disease: Estimated GFR < 15 mL/min/1.73m2 Glucose 288(H) 60 - 115 mg/dL [facility] Calcium 9.3 8.4 - 10.2 mg/dL [facility] Bilirubin, Total 0.5 0.0 - 1.0 mg/dL [facility] Aspartate Amino Transferase 16 5 - 37 U/L [facility] Alanine Aminotransferase 24 0 - 40 U/L [facility] Total Protein 7.9 6.5 - 8.0 g/dL [facility] Albumin Level 4.6 3.5 - 5.0 g/dL [facility] Alkaline Phosphatase 165(H) 39 - 117 U/L [facility] Blood Venous blood specimen / Unknown 08/22/2024 11:06 AM EDT 08/22/2024 1:10 PM EDT us Slim De Jesus MD LAB BLOOD ORDERABLES Final Resul t [facility] [address] [place] [phone] from Last [address] [address] LIMITED HSN FULL Care Teams Bookmaker Map Relationship Specialty Start Date End Date Name, MD Enrique [address] [place] [phone] PCP - General Internal Medicine 08/23/24
[2024-08-24 12:05] LABS: Creatinine Urine 68.85 mg/dL; Microalbum/Creatinine Ratio Ur 34.8 ug/mg cr (<30)
== END 2024-08-24 10:31 | disposition home or self-care (01) ==
LOC: HO.HHCL 10:30
PROVIDERS: Visit Provider Internal Medicine Geriatric Medicine
DX: E11.40 Type 2 diabetes mellitus with diabetic neuropathy, unspecified (principal)
CPT/HCPCS: 82043; 82570

== ENCOUNTER 2024-10-03 09:39 | Outpatient (REF) | payer MEDICAID, SELFPAY ==
--- OUTSIDE RECORDS SUMMARY | 2024-10-03 10:41 | XMS_ITS | Encounter Summary ---
Author Organization [employer] Address [address] [address] [place] [address] Care Team Providers Care Civil Estimator Name Role Phone Name, Enrique AUGUSTE Primary Care Provider [phone] Mariam Rodriguez PharmD Unavailable [phone] Encounter Details Date Type Department Care Team (Latest Contact Info) Description 10/03/2024 Travel Social History Tobacco Use Types Packs/Day [...] as of this encounter Plan of Treatment Upcoming Encounters Date Type Department Care Team (Late st Contact Info) Description 10/17/2024 9:30 AM EDT Medication Management [facility] [address] [place] [phone] Mariam Rodriguez PharmD [address] [place] [phone] 12/14/2024 9:00 AM EDT Office Visit [address] [phone] Name, MD Enrique [address] [place] [phone] documented as of this encounter Visit Diagnoses Not on filedocumented in this encounter Additional Health Concerns Assessment Noted Time PHQ-9 Depression Total Score: 8 08/25/19 25 10:32 AM EDT documented as of this encounter Care Teams Civil Estimator Relationship Specialty Start Date End Date NameEnrique MD [address] [place] [phone] PCP - General Internal Medicine 08/23/24 Mariam Rodriguez PharmD [address] [place] [phone] Pharmacist Internal Medicine 10/03/24 documented as of this encounter
[2024-10-03 11:48] LABS: Anion Gap 9 (12-20); Blood Urea Nitrogen 12 mg/dL (9-16); Calcium 9.4 mg/dL (8.4-10.2); Carbon Dioxide 30 mmol/L (22-29); Chloride 104 mmol/L (96-108); Cholesterol 193 mg/dL (<200); Estimated Glomerular Filt Rate > 60; Glucose Random 146 mg/dL (60-115); HDL Cholesterol 41 mg/dL (>40); LDL Cholesterol Calculated 121 mg/dL (<100); Potassium 4.4 mmol/L (3.3-5.1); Sodium 139 mmol/L (135-145); Triglycerides 156 mg/dL (<150)
[2024-10-03 13:16] LABS: Reflex LDLD? No
== END 2024-10-03 09:40 | disposition home or self-care (01) ==
LOC: HO.HHCL 09:39
PROVIDERS: Visit Provider Internal Medicine Geriatric Medicine
DX: E11.40 Type 2 diabetes mellitus with diabetic neuropathy, unspecified (principal); I10 Essential (primary) hypertension
CPT/HCPCS: 36415; 80048; 80061

== ENCOUNTER 2024-11-06 10:04 | Outpatient (REF) | payer MEDICAID, SELFPAY ==
--- OUTSIDE RECORDS SUMMARY | 2024-11-06 10:46 | XMS_ITS | Encounter Summary ---
Author Organization [employer] Address [address] [place] [address] Care Team Providers Care Call Center Support Representative Name Role Phone Name, Enrique AUGUSTE Primary Care Provider [phone] Mariam Rodriguez PharmD Unavailable [phone] Encounter Details Date Type Department Care Team (Latest Contact Info) Description 11/06/2024 Travel Social History Tobacco Use Types Packs/Day [...] Care Team (Late st Contact Info) Description 12/14/2024 9:00 AM EDT Office Visit [facility] [address] [place] [phone] Name, MD Enrique [address] [place] [phone] 01/01/2025 9:00 AM EDT Medication Management [address] [phone] Mariam Rodriguez PharmD [address] [place] [phone] documented as of this encounter Visit Diagnoses Not on filedocumented in this encounter Additional Health Concerns Assessment Noted Time PHQ-9 Depression Total Score: 8 08/25/19 25 10:32 AM EDT documented as of this encounter Care Teams Call Center Support Representative Relationship Specialty Start Date End Date Name, MD Ernique [address] [place] [phone] PCP - General Internal Medicine 08/23/24 Mariam Rodriguez, PharmD [address] [place] [phone] Pharmacist Internal Medicine 10/03/24 documented as of this encounter
[2024-11-06 12:08] LABS: Anion Gap 12 (12-20); Blood Urea Nitrogen 12 mg/dL (9-16); Calcium 9.5 mg/dL (8.4-10.2); Carbon Dioxide 28 mmol/L (22-29); Chloride 105 mmol/L (96-108); Estimated Glomerular Filt Rate > 60; Potassium 4.3 mmol/L (3.3-5.1); Sodium 141 mmol/L (135-145)
== END 2024-11-06 10:05 | disposition home or self-care (01) ==
LOC: HO.HHCL 10:04
PROVIDERS: PCP Internal Medicine Geriatric Medicine; Visit Provider Internal Medicine Geriatric Medicine
DX: I10 Essential (primary) hypertension (principal); E11.40 Type 2 diabetes mellitus with diabetic neuropathy, unspecified
CPT/HCPCS: 36415; 80048